=== PATIENT | male | born 1955 | race Caucasian/White ===

== ENCOUNTER 2023-11-09 14:09 | Outpatient (CLI) | payer MEDICARE, BC, SELFPAY ==
--- NOTE | 2023-11-09 14:16 | USCV_ITS ---
Joseph Hanson Age: 68 Gender: M : 1955 Exam Date: 11/09/2023 14:26 Ordering Phys: David Boyd Technologist: Antonieta Ramirez Exam Location: [facility] [place] Indication: PRIOR LT SIDED CVA NOW RT RET. ARTERY OCCLUSSION. GRAFT IN RT CCA/ICA Risk Factors: None Previous Vascular Surgery: CABG, R CEA Right Brachial BP: / Left Brachial BP: / Right Left Velocity (cm/s) Spectral Plaque Velocity (cm/s) Spectral Plaque Syst/Diast Broadening Syst/Diast Broadening 72.80/ 23.20 Prox CCA 78.30 / 18.70 67.30/ 22.10 Mid CCA 89.30 / 25.40 75.00/ 17.60 Distal CCA 83.80 / 22.10 Hetro 57.20/ 23.00 Prox ICA 60.70 / 22.20 Hetro 51.80/ 14.40 Mid ICA 59.90 / 20.80 41.10/ 14.00 Distal ICA 64.50 / 24.30 227.90 ECA 192.50 0.85 ICA/CCA 0.72 Antegrade Vertebral Antegrade 49.30/ 17.70 cm/s 17.00/ 4.70 cm/s Tri Subclavian Bi 90.40 119.9 0 CONCLUSIONS Right ICA stenosis <50%. Moderate atheromatous plaque right carotid bulb/ICA. Left ICA stenosis <50%. Moderate atheromatous plaque left carotid bulb/ICA. Normal antegrade Doppler flow noted in the right vertebral artery. Normal antegrade Doppler flow noted in the left vertebral artery. Frantz Anguiano MD (Electronically Signed) Final Date: 09 November 2023 15:52 S
== END 2023-11-09 14:10 | disposition home or self-care (01) ==
LOC: RAD 14:09
PROVIDERS: PCP Nurse Practitioner Family; Visit Provider Student in an Organized Health Care Education/Training Program
DX: H34.231 Retinal artery branch occlusion, right eye (principal); I65.23 Occlusion and stenosis of bilateral carotid arteries; Z86.73 Personal history of transient ischemic attack (TIA), and cerebral infarction without residual deficits; Z95.828 Presence of other vascular implants and grafts
CPT/HCPCS: 93880

== ENCOUNTER 2023-12-29 06:00 | Outpatient (RCR) | payer MEDICARE, BC, SELFPAY | END 2024-01-28 23:59 | disposition home or self-care (01) | LOC: SOT 06:00 | PROVIDERS: Visit Provider Nurse Practitioner Family | DX: R53.1 Weakness (principal) | CPT/HCPCS: 97022; 97110; 97140; 97166 ==

== ENCOUNTER 2024-03-08 13:14 | Outpatient (CLI) | payer MEDICARE, BC, SELFPAY ==
--- NOTE | 2024-03-08 13:23 | XR_ITS ---
WS: [id number] Lumbar spine, 3 views, 03/08/2024 Clinical Data: LOW BACK PAIN Comparison: CT abdomen/pelvis, 06/02/2008 Findings: No compression fractures or subluxation is seen. There is degenerative disc narrowing at T12-L1, L1-L 2, L2-L3 and L5-S1. All the lumbar vertebral bodies show anterior osteoarthritic spurring. The trans verse processes and SI joints are normal. There is an infrarenal abdominal aortic aneurysm which measures in greatest AP diameter 6.05 cm super ior-inferior height of 9.2 cm. XR/XR lumbar spine 2-3V* [id number] Impression: 1. Multilevel degenerative arthritis and degenerative disc disease. 2. Abdominal aortic aneurysm with greatest A-P diameter of 6.05 cm.
== END 2024-03-08 13:15 | disposition home or self-care (01) ==
LOC: RAD 13:18
PROVIDERS: PCP Nurse Practitioner Family; Visit Provider Nurse Practitioner Family
DX: I71.43 Infrarenal abdominal aortic aneurysm, without rupture (principal); M47.896 Other spondylosis, lumbar region; M48.04 Spinal stenosis, thoracic region; M48.08 Spinal stenosis, sacral and sacrococcygeal region; M46.06 Spinal enthesopathy, lumbar region
CPT/HCPCS: 72100

== ENCOUNTER 2024-03-27 09:27 | Outpatient (CLI) | payer MEDICARE, BC, SELFPAY ==
--- NOTE | 2024-03-27 09:32 | CT_ITS ---
WS: [id number] CTA ABDOMEN AND PELVIS TECHNIQUE: Contrast-enhanced CTA of the abdominal aorta with coronal and sagittal reformatted images and additional MIP Images. CLINICAL INFORMATION: INFARENAL ABDOMINAL AORTIC ANEURYSM WITHOUT RUPTURE COMPARISON: CT 2008 DLP: 259.[address] scans at [facility] use at least one of these dose optimization techniques: automated e xposure control; mA and/or kV adjustment per patient size (includes targeted exams where dose is matc hed to clinical indication); or iterative reconstruction. FINDINGS: Fusiform infrarenal down aortic aneurysm has progressed since 2007. This measures approximately 4.9 x 4.7 x 7.6 cm AP by transverse by craniocaudal. Moderate irregular atheromatous disease with ulcerate d plaque. Celiac and SMA are patent. Proximal renal arteries are patent. JUAN CARLOS is patent. Proximal comm on iliac arteries are tortuous and patent. Lung bases are well aerated. Mild hepatomegaly. Food products in the distended stomach. Calcified RIG HT adrenal gland. LEFT renal gland is normal. Normal renal parenchymal enhancement. No hydronephrosis . Tiny LEFT renal cyst. Sigmoid diverticulosis. Tiny fat-containing umbilical hernia. Calcified prostate enlargement measurin g 4.3 cm. Slight grade 1 anterolisthesis L5 on S1. Disc osteophyte complexes L2-L3 and L3-L4 with mil d central canal stenosis. CT/CT angio abdomen pelvis [id number] IMPRESSION: 1. Fusiform infrarenal abdominal aortic aneurysm progressed since 2007 measuri ng 4.9 x 4.7 x 7.6 cm AP by transverse by craniocaudal. Recommend vascular surg marc consultation. 2. Moderate irregular atheromatous plaque with ulceration abdominal aorta. 3. No other acute findings.
[2024-03-27 10:11] LABS: Blood Urea Nitrogen 9 mg/dL (8-23); Glomerular Filtration Rate 133.2 mL/min (90-130)
[2024-03-27] MEDS: iohexol 350 mg/mL 500 mL Btl (per mL) IV (10:18)
== END 2024-03-27 09:28 | disposition home or self-care (01) ==
LOC: RAD 09:27
PROVIDERS: Radiology Diagnostic Radiology; PCP Nurse Practitioner Family; Visit Provider Surgery Vascular Surgery
DX: I71.43 Infrarenal abdominal aortic aneurysm, without rupture (principal); I70.0 Atherosclerosis of aorta; R16.0 Hepatomegaly, not elsewhere classified; E27.49 Other adrenocortical insufficiency; K57.30 Diverticulosis of large intestine without perforation or abscess without bleeding; N40.0 Benign prostatic hyperplasia without lower urinary tract symptoms; M25.78 Osteophyte, vertebrae; M48.061 Spinal stenosis, lumbar region without neurogenic claudication
CPT/HCPCS: 74174; 82565; 84520; Q9967

== ENCOUNTER 2024-07-08 13:33 | Outpatient (RCR) | payer MEDICARE, BC, SELFPAY | END 2024-07-29 23:59 | disposition home or self-care (01) | LOC: SOT 13:33 | PROVIDERS: PCP Nurse Practitioner Family; Visit Provider Nurse Practitioner Family | DX: G81.92 Hemiplegia, unspecified affecting left dominant side (principal) | CPT/HCPCS: 97167 ==

== ENCOUNTER 2024-11-04 12:32 | Outpatient (CLI) | payer MEDICARE, BC, SELFPAY ==
--- NOTE | 2024-11-04 12:40 | CT_ITS ---
WS: [id number] CT ANGIOGRAPHY abdomen pelvis HISTORY: INFRARENAL ABDOMINAL AORTIC ANEURYSN TECHNIQUE: CT angiogram is performed during IV injection. Reformation images reviewed. All CT scans a [facility] use at least one of these dose optimization techniques: automated exposure contro l; mA and/or kV adjustment per patient size (includes targeted exams where dose is matched to clinica l indication); or iterative reconstruction. CONTRAST: Omnipaque 350; 100 mL IV. DLP: 274.20 mGy.cm COMPARISON: 03/27/2024 Emphysematous changes at the lung bases. No pneumonia or nodule. Normal size heart. Mild tricuspid re gurgitation into the hepatic veins. Abdominal aorta: Marked atherosclerosis abdominal aorta. Infrarenal abdominal aortic aneurysm is angelique entified. Aneurysm extends over a length of 7.0 cm. Maximum AP diameter 4.7 cm, maximum transverse di ameter 4.9 cm. Very similar in appearance to the prior study. There is a small amount of partially en casing aortic thrombus. No stenosis. Aorta returns to normal caliber at the common iliac arteries. Mi ldly ectatic but nonaneurysmal iliac arteries. LEFT common iliac artery 1.7 cm slightly greater in di ameter than the RIGHT. Plaque in the internal iliac arteries. No occlusions. Origin of the celiac axis and SMA are without stenosis. Renal arteries are both patent. Mild stenosis origin of the RIGHT renal artery. There is a focal moderate stenosis involving the proximal LEFT gabriele al artery. JUAN CARLOS is still patent. Normal size of the liver, spleen and pancreas. No abnormality. Calcification in the RIGHT adrenal gla nd may be from prior hemorrhage. No adrenal masses. Kidneys are enhancing normally. Large amount of food products in the stomach. No obstructive pattern within the GI tract. No ascites or adenopathy. Mild sigmoid diverticulosis without acute diverticulitis. Mild osteopenia. Mild prostate heterogeneity and enlargement. CT/CT angio abdomen pelvis [id number] IMPRESSION: 1. Infrarenal, fusiform abdominal aortic aneurysm without significant change s dante 03/27/2024. Maximum AP diameter of 4.7 in maximal transverse diameter 4.9 c m. Aneurysm extends over a length of 7.0 cm. 2. Moderate stenosis proximal LEFT renal artery and mild stenosis origin of th e RIGHT renal artery. 3. Atheromatous plaque continues into the iliac arteries with no obstruction.
[2024-11-04 13:16] LABS: Blood Urea Nitrogen 20 mg/dL (8-23); Glomerular Filtration Rate 59.9 mL/min (90-130)
[2024-11-04] MEDS: iohexol 350 mg/mL 500 mL Btl (per mL) IV (13:32)
== END 2024-11-04 12:33 | disposition home or self-care (01) ==
LOC: RAD 12:37
PROVIDERS: Radiology Diagnostic Radiology; PCP Nurse Practitioner Family; Visit Provider Clinical Nurse Specialist Adult Health
DX: I71.33 Infrarenal abdominal aortic aneurysm, ruptured (principal); I25.10 Atherosclerotic heart disease of native coronary artery without angina pectoris; I70.1 Atherosclerosis of renal artery; I70.8 Atherosclerosis of other arteries; R91.8 Other nonspecific abnormal finding of lung field; I37.1 Nonrheumatic pulmonary valve insufficiency; I70.0 Atherosclerosis of aorta; E27.49 Other adrenocortical insufficiency; K57.90 Diverticulosis of intestine, part unspecified, without perforation or abscess without bleeding; M85.80 Other specified disorders of bone density and structure, unspecified site; N40.0 Benign prostatic hyperplasia without lower urinary tract symptoms
CPT/HCPCS: 74174; 82565; 84520

== ENCOUNTER 2025-04-23 11:54 | Outpatient (CLI) | payer MEDICARE, BC, SELFPAY ==
--- NOTE | 2025-04-23 11:57 | CT_ITS ---
WS: [id number] CT ANGIOGRAPHY ABDOMEN AND PELVIS HISTORY: AAA TECHNIQUE: CT angiogram is performed during IV injection. Reformation images reviewed. All CT scans at [facility] use at least one of these dose optimization techniques: automated exposure control; mA and/or kV adjustment per patient size (includes targeted exams where dose is matched to clinical indication); or iterative reconstruction. CONTRAST: Omnipaque 350; 100 mL IV. DLP: 280.77 mGy.cm COMPARISON: 11/04/2023, 03/27/2024 Emphysematous changes at the lung bases. New spiculated 7.6 mm nodule at the LEFT lung base. Normal size heart. Tricuspid regurgitation into the hepatic veins. Small hiatal hernia. Abdominal aorta: Ectatic atherosclerotic changes within the abdominal aorta. Reidentified is the fusiform infrarenal abdominal aortic aneurysm measuring 6.6 cm in length. Maximum transverse diameter 5.0 cm. Maximum AP diameter 4.9 cm. Small amount of peripheral circumferential asymmetric plaque identified. There is a small ulceration filling with contrast in the superior most aspect of the posterior aneurysm. Aneurysm begins just below the level of the renal arteries. Origins of the celiac axis and SMA are normal. JUAN CARLOS is patent and arises from the aneurysmal portion of the aorta. Heavy calcification continues into the iliac arteries. Iliac arteries are patent. Normal diameter internal and external iliac arteries. Mild hepatic steatosis. Negative pancreas. Mildly contracted gallbladder. Kidneys are enhancing normally. There is plaque in the proximal renal arteries causing at least mild stenosis. Stomach is distended with fluid. No GI tract obstruction. Distal colon diverticular disease without acute diverticulitis. Prior appendectomy. CT/CT angio abdomen pelvis [id number] IMPRESSION: 1. Stable infrarenal abdominal aortic aneurysm with a maximum diameter of 5.0 cm. Maximum length 6.6 cm. No change since 03/27/2024. 2. New spiculated 7.6 mm nodule at the LEFT lung base. Recommend 3-month chest CT follow-up. Early lung neoplasm needs to be excluded. 3. Atherosclerotic plaque in the proximal renal arteries with component of mil d stenosis. Normal enhancement of each kidney.
[2025-04-23 12:26] LABS: Blood Urea Nitrogen 25 mg/dL (8-23)
[2025-04-23] MEDS: iohexol 350 mg/mL 500 mL Btl (per mL) IV (12:38)
== END 2025-04-23 11:55 | disposition home or self-care (01) ==
LOC: RAD 11:55
PROVIDERS: Radiology Diagnostic Radiology; PCP Nurse Practitioner Family; Visit Provider Clinical Nurse Specialist Adult Health
DX: I71.43 Infrarenal abdominal aortic aneurysm, without rupture (principal); R91.1 Solitary pulmonary nodule; I70.8 Atherosclerosis of other arteries; J43.9 Emphysema, unspecified; I07.1 Rheumatic tricuspid insufficiency; K44.9 Diaphragmatic hernia without obstruction or gangrene; I70.0 Atherosclerosis of aorta; K76.0 Fatty (change of) liver, not elsewhere classified; R93.89 Abnormal findings on diagnostic imaging of other specified body structures; K57.30 Diverticulosis of large intestine without perforation or abscess without bleeding; Z98.890 Other specified postprocedural states
CPT/HCPCS: 74174; 82565; 84520